=== PATIENT | female | born 1935 | race Caucasian/White ===

== ENCOUNTER 2018-07-23 09:18 | Emergency (ER) | payer OTHER ==
[~2018-07-23] VITALS: Ht 165.1 cm; Wt 71.9 kg
[2018-07-23] MEDS ORDERED: PREDNISONE 5 MG5 M1 PO (09:39)
[2018-07-23] MEDS ORDERED: NORCO 5-325 TA1 EACH PO (12:27)
[2018-07-23 12:46] VITALS: BP 121/52
== END 2018-07-23 12:46 | disposition home or self-care (01) ==
LOC: M.ERS 09:18
DX: S22.32XA Fracture of one rib, left side, initial encounter for closed fracture (principal); S20.222A Contusion of left back wall of thorax, initial encounter; M19.90 Unspecified osteoarthritis, unspecified site; Z88.6 Allergy status to analgesic agent; W11.XXXA Fall on and from ladder, initial encounter; Y93.89 Activity, other specified; Y92.89 Other specified places as the place of occurrence of the external cause; Y99.8 Other external cause status